=== PATIENT | female | born 1960 | race Caucasian/White ===

== ENCOUNTER 2016-05-03 13:17 | Emergency (ER) | payer MEDICARE, OTHER ==
[~2016-05-03] VITALS: Ht 162.6 cm; Wt 43.7 kg
[~2016-05-03 13:17] MED LIST: BENZ1 PO; BENZ1TAB PO; INVE6TAB2 PO; PALI6 PO; PARO20 PO; PAXI30TA7 PO
[2016-05-03 13:41] VITALS: BP 113/81; PULSE 117; RESP 16; TEMP 98.2; O2SAT 98
[2016-05-03 15:13] VITALS: BP 131/79; PULSE 102; RESP 18; O2SAT 99
[2016-05-03 15:34] LABS: AUTOMATED NEUTROPHIL # 6.6 TH/MM3 (1.8-7.7); BASOPHIL % 0.5 % (0.0-2.0); EOSINOPHIL # 0.1 TH/MM3 (0-0.4); HEMO FLAGS DIFF FINAL; LYMPH % 13.3 % (9.0-44.0); LYMPHOCYTE # 1.1 TH/MM3 (1.0-4.8); MEAN CELL VOLUME 88.6 FL (80.0-100.0); MEAN CORPUSCULAR HEMOGLOBIN 29.6 PG (27.0-34.0); MEAN CORPUSCULAR HGB CONC 33.3 % (32.0-36.0); MONO % 3.7 % (0.0-8.0); NEUT % 81.5 % (16.0-70.0); PLATELET COUNT 256 TH/MM3 (150-450); RED BLOOD COUNT 4.52 MIL/MM3 (4.00-5.30); RED CELL DISTRIBUTION WIDTH 14.5 % (11.6-17.2); WHITE BLOOD COUNT 8.1 TH/MM3 (4.0-11.0)
[2016-05-03 15:45] LABS: CHLORIDE 117 MEQ/L (98-107); POTASSIUM 5.1 MEQ/L (3.5-5.1); SODIUM (NA) 143 MEQ/L (136-145)
[2016-05-03 15:48] LABS: ANION GAP 8 MEQ/L (5-15); BICARBONATE 18.1 MEQ/L (21.0-32.0); BLOOD UREA NITROGEN 36 MG/DL (7-18)
[2016-05-03 15:51] LABS: ALT (GPT) 12 U/L (10-53); AST (GOT) 5 U/L (15-37); GLOMERULAR FILTRATION RATE 24 ML/MIN (>89)
[2016-05-03 15:53] LABS: TOTAL BILIRUBIN ADULT 0.3 MG/DL (0.2-1.0)
[2016-05-03 15:54] LABS: ALKALINE PHOSPHATASE 92 U/L (45-117)
--- NOTE | 2016-05-03 16:08 | RADHPO ---
EXAM DATE/TIME: 05/03/2016 15:20 [place] COMPARISON: No previous studies available for comparison. INDICATIONS : Short of breath. MEDICAL HISTORY : None. SURGICAL HISTORY : None. ENCOUNTER: Initial ACUITY: 1 day PAIN SCORE: 0/10 LOCATION: Bilateral chest FINDINGS: PA and lateral views of the chest demonstrate the lungs to be symmetrically aerated without evidence of mass, infiltrate or effusion. No evidence of pneumothorax. The cardiomediastinal contours are un remarkable. Osseous structures are intact. CONCLUSION: No acute cardiopulmonary disease. Matt Salazar MD on May 03, 2016 at 16:06 Board Certified Radiologist. This report was verified electronically.
[2016-05-03] MEDS ORDERED: VENTAER INH (16:32)
--- NOTE | 2016-05-03 16:32 | PD ---
HPI Chief Complaint: Respiratory Symptoms Time Seen by Provider: 14:47 Travel History International Travel<30 days: No Contact w/Intl Traveler<30days: No Traveled to known affect area: No History of Present Illness HPI So 55-year-old woman who presents to the emergency department complaining of shortness of breath started last night. She hasn't really had any cough or cold symptoms, or chest pain with it. She is a history of tobacco use and smokes a half pack per day but has no history of COPD or emphysema. She parted friend's nebulizer and states it didn't really help. She does have a history of anxiety. Her brother lives at home with her he's been in the hospital for the past week but she states that she doesn't think that she's been having more anxiety symptoms. No other complaints. History Past Medical History Narrative Medical Depression Hyperlipidemia Tetanus Vaccination: > 5 Years Influenza Vaccination: No Menopausal: Yes : 1 Para: 0 Social History Alcohol Use: Yes Tobacco Use: Yes (/ PPD) Allergies-Medications (Allergen,Severity, Reaction): Coded Allergies: No Known Allergies (Unverified , 05/03/16) Per patient and per [facility] pharmacy. Reported Meds & Prescriptions Reported Meds & Active Scripts Active Paxil 20 Mg Tab (Paroxetine Hcl) 20 Mg Tab 30 Mg PO DAILY 14 Days Invega (Paliperidone Palmitate) 6 Mg Tab 6 Mg PO DAILY 14 Days Benztropine Mesylate 1 Mg Tab 1 Mg PO Q12HR 14 Days Reported Cogentin (Benztropine Mesylate) 2 Mg Tab 2 Mg PO BID Invega (Paliperidone) 6 Mg Tab 12 Mg PO HS Paxil (Paroxetine HCl) 30 Mg Tab 60 Mg PO DAILY Review of Systems Except as stated in HPI: all other systems reviewed are Neg Physical Exam Narrative GENERAL: Thin 55-year-old woman, no acute distress. SKIN: Warm and dry. HEAD: Atraumatic. Normocephalic. NECK: Trachea midline. No JVD. CARDIOVASCULAR: Regular rate and rhythm. No murmur appreciated. RESPIRATORY: No accessory muscle use. Clear to auscultation. Breath sounds equal bilaterally. GASTROINTESTINAL: Abdomen soft, non-tender, nondistended. Hepatic and splenic margins not palpable. MUSCULOSKELETAL: No obvious deformities. No edema. NEUROLOGICAL: Awake and alert. No obvious cranial nerve deficits. Motor grossly within normal limits. Normal speech. PSYCHIATRIC: Appropriate mood and affect; insight and judgment normal. Data Data Last Documented VS Vital Signs Date Time Temp Pulse Resp B/P Pulse Ox O2 Delivery O2 Flow Rate FiO2 05/03/16 15:13 102 18 131/79 99 Room Air 05/03/16 13:41 98.2 Orders Complete Blood Count With Diff (05/03/16 15:12) Comprehensive Metabolic Panel (05/03/16 15:12) Troponin I (05/03/16 15:12) Chest, Pa & Lat (05/03/16 ) Electrocardiogram (05/03/16 ) Iv Access Insert/Monitor (05/03/16 15:12) Labs Laboratory Tests Test 05/03/16 15:28 White Blood Count 8.1 TH/MM3 Red Blood Count 4.52 MIL/MM3 Hemoglobin 13.4 GM/DL Hematocrit 40.0 % Mean Corpuscular Volume 88.6 FL Mean Corpuscular Hemoglobin 29.6 PG Mean Corpuscular Hemoglobin 33.3 % Concent Red Cell Distribution Width 14.5 % Platelet Count 256 TH/MM3 Mean Platelet Volume 7.4 FL Neutrophils (%) (Auto) 81.5 % Lymphocytes (%) (Auto) 13.3 % Monocytes (%) (Auto) 3.7 % Eosinophils (%) (Auto) 1.0 % Basophils (%) (Auto) 0.5 % Neutrophils # (Auto) 6.6 TH/MM3 Lymphocytes # (Auto) 1.1 TH/MM3 Monocytes # (Auto) 0.3 TH/MM3 Eosinophils # (Auto) 0.1 TH/MM3 Basophils # (Auto) 0.0 TH/MM3 CBC Comment DIFF FINAL Differential Comment Sodium Level 143 MEQ/L Potassium Level 5.1 MEQ/L Chloride Level 117 MEQ/L Carbon Dioxide Level 18.1 MEQ/L Anion Gap 8 MEQ/L Blood Urea Nitrogen 36 MG/DL Creatinine 2.10 MG/DL Estimat Glomerular Filtration 24 ML/MIN Rate Random Glucose 102 MG/DL Calcium Level 9.6 MG/DL Total Bilirubin 0.3 MG/DL Aspartate Amino Transf 5 U/L (AST/SGOT) Alanine Aminotransferase 12 U/L (ALT/SGPT) Alkaline Phosphatase 92 U/L Troponin I LESS THAN 0.02 NG/ML Total Protein 7.3 GM/DL Albumin 3.6 GM/DL MDM Medical Decision Making Medical Screen Exam Complete: Yes Emergency Medical Condition: Yes Interpretation(s) My review of EKG: Normal sinus rhythm at a rate of 87, normal axis, normal intervals, prominent P waves in the inferior leads could suggest P pulmonale. LABS: CBC unremarkable. CMP remarkable for mildly elevated BUN and creatinine. Troponin negative. Chest x-ray negative. Differential Diagnosis COPD, emphysema, COPD bronchitis, anxiety, PE, ACS, other Narrative Course FINAL: 55-year-old woman with history of smoking, who is some shortness of breath. Normal pulmonary exam. Does not appear labored or tachypneic. EKG is unremarkable with may be some suggestion of right atrial enlargement. I don't think she has PE. She likely has some underlying lung disease. Recommend supportive treatment, bronchodilators, return for any worsening symptoms. Diagnosis Primary Impression: Shortness of breath Additional Instructions: Take inhaler every 4-6 hours as needed. Return to the emergency department for any worsening shortness of breath, chest pain, or any other new or worsening symptoms. Med/Other Pt SpecificInfo: Prescription(s) given Scripts Albuterol 18 GM Inh (Ventolin Hfa 18 GM Inh)90 Mcg/Act Aer2 Puff INH Q4-6H PRN ( SHORTNESS OF BREATH) #1 INHALER Prov:Bakari Juarez MD 05/03/16 Disposition: 01 DISCHARGE HOME Condition: Stable Bakari Juarez MD May 03, 2016 16:32
[2016-05-03 16:40] VITALS: BP 128/76; PULSE 94; RESP 16; O2SAT 99
--- NOTE | 2016-05-04 17:25 | EKG ---
Date Performed: 05/03/2016 Time Performed: 15:23:46 PTAGE: 55 years EKG: Sinus rhythm Possible left atrial abnormality Borderline ECG PREVIOUS TRACING : 08/13/2015 13.25 Since previous tracing, no significant change noted DOCTOR: July Ulloa Interpretating Date/Time 05/04/2016 17:17:52
== END 2016-05-03 17:25 | disposition home or self-care (01) ==
LOC: PHED 13:17
DX: R06.02 Shortness of breath (principal); F17.210 Nicotine dependence, cigarettes, uncomplicated; F10.10 Alcohol abuse, uncomplicated; F32.9 Major depressive disorder, single episode, unspecified; E78.5 Hyperlipidemia, unspecified
CPT/HCPCS: 71020; 80053; 84484; 85025; 93005

== ENCOUNTER 2016-06-04 17:04 | Emergency (ER) | payer MEDICARE, OTHER ==
[~2016-06-04 17:04] MED LIST changes: +VENTAER INH
[2016-06-04 17:13] VITALS: BP 119/78; PULSE 130; RESP 18; TEMP 99.1; O2SAT 96
[2016-06-04 17:46] LABS: AUTOMATED NEUTROPHIL # 9.4 TH/MM3 (1.8-7.7); BASOPHIL # 0.1 TH/MM3 (0-0.2); EOSINOPHIL % 0.2 % (0.0-4.0); HEMATOCRIT 40.6 % (35.0-46.0); HEMO FLAGS DIFF FINAL; LYMPH % 9.3 % (9.0-44.0); MEAN CELL VOLUME 88.5 FL (80.0-100.0); MEAN CORPUSCULAR HGB CONC 33.9 % (32.0-36.0); MONO % 3.6 % (0.0-8.0); NEUT % 85.9 % (16.0-70.0); PLATELET COUNT 212 TH/MM3 (150-450); RED BLOOD COUNT 4.58 MIL/MM3 (4.00-5.30); RED CELL DISTRIBUTION WIDTH 15.1 % (11.6-17.2)
[2016-06-04 17:50] VITALS: PULSE 112
[2016-06-04 17:54] LABS: AMPHETAMINE, URINE NEG (NEG); BARBITURATES, URINE NEG (NEG); COCAINE, URINE NEG (NEG)
[2016-06-04 18:06] LABS: ANION GAP 10 MEQ/L (5-15); AST (GOT) 10 U/L (15-37); BICARBONATE 19.7 MEQ/L (21.0-32.0); BLOOD UREA NITROGEN 37 MG/DL (7-18); CHLORIDE 111 MEQ/L (98-107); GLOMERULAR FILTRATION RATE 22 ML/MIN (>89); POTASSIUM 4.4 MEQ/L (3.5-5.1); SODIUM (NA) 141 MEQ/L (136-145)
[2016-06-04 18:09] LABS: ALKALINE PHOSPHATASE 112 U/L (45-117); ALT (GPT) 15 U/L (10-53); TOTAL BILIRUBIN ADULT 0.4 MG/DL (0.2-1.0)
[2016-06-04 18:13] LABS: ACETAMINOPHEN LESS THAN 2.0 MCG/ML (10.0-30.0)
--- NOTE | 2016-06-04 18:23 | PD ---
HPI Chief Complaint: Psychiatric Symptoms Time Seen by Provider: 18:19 Travel History International Travel<30 days: No Contact w/Intl Traveler<30days: No Traveled to known affect area: No History of Present Illness HPI 55-year-old female that presents to the ED for evaluation of psychiatric illness. Patient comes here under Mosher act after apparently DCF was in the house trying to establish and there was any possibility of neglect and she was found to be incapable of taking care of herself. She does have a history of schizophrenia as well as her depression and anxiety. Per patient she's been on her medications. She denies any pain of any kind. She denies any symptoms of any kind. Per patient she wants to go home. Patient denies any suicidal or homicidal ideation. She does appear to have some bizarre thinking. No sign of acute disease. She has been here before. She is not very forthcoming with information and for the most but some suggestion or no questions. She is a poor historian. [facility] Past Medical History Anemia: Yes Anxiety: Yes Depression: Yes Developmental Delay: Yes Diminished Hearing: No Genitourinary: No Musculoskeletal: No Neurologic: No Psychiatric: Yes (pt has a longstanding history of psychiatric care starting in [place] ) Reproductive: No Respiratory: No Schizophrenia: Yes Menopausal: Yes : 1 Para: 0 Miscarriage: 0 : 1 Past Surgical History Appendectomy: Yes (1994) Social History Alcohol Use: No Tobacco Use: Yes (1 PPD) Substance Use: No (DENIES) Allergies-Medications (Allergen,Severity, Reaction): Coded Allergies: No Known Allergies (Unverified , 05/03/16) Per patient and per [facility] pharmacy. Reported Meds & Prescriptions Reported Meds & Active Scripts Active Ventolin Hfa 18 GM Inh (Albuterol Sulfate) 90 Mcg/Act Aer 2 Puff INH Q4-6H PRN Paxil 20 Mg Tab (Paroxetine Hcl) 20 Mg Tab 30 Mg PO DAILY 14 Days Invega (Paliperidone Palmitate) 6 Mg Tab 6 Mg PO DAILY 14 Days Benztropine Mesylate 1 Mg Tab 1 Mg PO Q12HR 14 Days Reported Benztropine Mesylate 2 Mg Tab 2 Mg PO BID Invega (Paliperidone) 6 Mg Tab 12 Mg PO HS Paxil (Paroxetine HCl) 30 Mg Tab 60 Mg PO DAILY Review of Systems ROS Limitations: Poor Historian Except as stated in HPI: all other systems reviewed are Neg Physical Exam Exam Limitations: Poor Historian Narrative GENERAL: SKIN: Warm and dry. HEAD: Atraumatic. Normocephalic. EYES: Pupils equal and round. No scleral icterus. No injection or drainage. ENT: No nasal bleeding or discharge. Mucous membranes pink and moist. Tongue is midline. No uvula deviation. NECK: Trachea midline. No JVD. CARDIOVASCULAR: Regular rate and rhythm. No murmurs, S3, S4. RESPIRATORY: No accessory muscle use. Clear to auscultation. Breath sounds equal bilaterally. GASTROINTESTINAL: Abdomen soft, non-tender, nondistended. Hepatic and splenic margins not palpable. MUSCULOSKELETAL: Extremities without clubbing, cyanosis, or edema. No obvious deformities. Full range of motion of the upper and lower extremities bilaterally. 2+ pulses bilaterally. NEUROLOGICAL: Awake and alert. No obvious cranial nerve deficits. Motor grossly within normal limits. Five out of 5 muscle strength in the arms and legs. Normal speech. PSYCHIATRIC: Somewhat psychotic mood and affect; insight and judgment questionable Data Data Last Documented VS Vital Signs Date Time Temp Pulse Resp B/P Pulse Ox O2 Delivery O2 Flow Rate FiO2 06/04/16 17:50 112 06/04/16 17:35 20 06/04/16 17:13 99.1 119/78 96 Room Air Orders Complete Blood Count With Diff (06/04/16 17:18) Comprehensive Metabolic Panel (06/04/16 17:18) Psych Screen (06/04/16 17:18) Drug Screen, Random Urine (06/04/16 17:18) Alcohol (Ethanol) (06/04/16 17:18) Salicylates (Aspirin) (06/04/16 17:18) Tylenol (Acetaminophen) (06/04/16 17:18) Electrocardiogram (06/04/16 ) Labs Laboratory Tests Test 06/04/16 06/04/16 17:25 17:29 White Blood Count 11.0 TH/MM3 Red Blood Count 4.58 MIL/MM3 Hemoglobin 13.8 GM/DL Hematocrit 40.6 % Mean Corpuscular Volume 88.5 FL Mean Corpuscular Hemoglobin 30.0 PG Mean Corpuscular Hemoglobin 33.9 % Concent Red Cell Distribution Width 15.1 % Platelet Count 212 TH/MM3 Mean Platelet Volume 7.9 FL Neutrophils (%) (Auto) 85.9 % Lymphocytes (%) (Auto) 9.3 % Monocytes (%) (Auto) 3.6 % Eosinophils (%) (Auto) 0.2 % Basophils (%) (Auto) 1.0 % Neutrophils # (Auto) 9.4 TH/MM3 Lymphocytes # (Auto) 1.0 TH/MM3 Monocytes # (Auto) 0.4 TH/MM3 Eosinophils # (Auto) 0.0 TH/MM3 Basophils # (Auto) 0.1 TH/MM3 CBC Comment DIFF FINAL Differential Comment Sodium Level 141 MEQ/L Potassium Level 4.4 MEQ/L Chloride Level 111 MEQ/L Carbon Dioxide Level 19.7 MEQ/L Anion Gap 10 MEQ/L Blood Urea Nitrogen 37 MG/DL Creatinine 2.32 MG/DL Estimat Glomerular Filtration 22 ML/MIN Rate Random Glucose 120 MG/DL Calcium Level 9.7 MG/DL Total Bilirubin 0.4 MG/DL Aspartate Amino Transf 10 U/L (AST/SGOT) Alanine Aminotransferase 15 U/L (ALT/SGPT) Alkaline Phosphatase 112 U/L Total Protein 7.4 GM/DL Albumin 3.9 GM/DL Salicylates Level 17.2 MG/DL Acetaminophen Level LESS THAN 2.0 MCG/ML Ethyl Alcohol Level LESS THAN 3 MG/DL Urine Opiates Screen NEG Urine Barbiturates Screen NEG Urine Amphetamines Screen NEG Urine Benzodiazepines Screen NEG Urine Cocaine Screen NEG Urine Cannabinoids Screen NEG MDM Medical Decision Making Medical Screen Exam Complete: Yes Emergency Medical Condition: Yes Medical Record Reviewed: Yes Interpretation(s) CBC & BMP Diagram 06/04/16 17:25 LFTS wnl Tox negative Differential Diagnosis Depression versus suicidal ideation versus anxiety versus adjustment disorder versus mood disorder versus bipolar disorder versus schizophrenia versus paranoid disorder versus psychosis versus substance abuse versus alcohol abuse versus alcohol induced psychosis versus homicidality addition versus cutting versus personality disorder Narrative Course 55-year-old female that presents to the ED for evaluation of psych. Patient was properly examined and was found to have signs and symptoms consistent with psychiatric illness. No sign of acute medical distress. Labs were done. Patient was found to have what appears to be chronic kidney disease. Patient was seen here on 2015 and was found to be also having chronic kidney disease. This appears to be stable from her prior. I do not see any need to acutely treat this. At this time patient will be medically clear. Okay to be seen by psych. Mental health screening was discussed with the patient. Diagnosis Primary Impression: Schizophrenia, acute undifferentiated Tej Maldonado Jun 04, 2016 18:23
[2016-06-04] MEDS ORDERED: COGE1INJ PO (19:26)
[2016-06-04 19:37] VITALS: BP 154/82; PULSE 99; RESP 18
[2016-06-04 22:32] VITALS: BP 112/55; PULSE 100; RESP 19; O2SAT 97
[2016-06-05 02:20] VITALS: BP 116/69; PULSE 76; RESP 18; O2SAT 98
--- NOTE | 2016-06-05 08:29 | MB ---
cc: ROLAN TEAGUE MD DATE OF CONSULTATION 06/05/2016 PHYSICIAN REQUESTING CONSULTATION Emergency Department REASON FOR CONSULTATION Mosher Act HISTORY OF PRESENT ILLNESS Ms. Montemayor is a 55-year-old female with a history of schizophrenia who presents under a Mosher Act from [facility] Department alleging that "during the course of a neglect investigation with the DCF...it was determined that Ramila was not only unable to care for her brother, Porsche Montemayor, she was unable to care for herself." There is no allegation of unstable mental illness in the Mosher Act, nor are there any suicidal or homicidal concerns raised. Reviewing the electronic medical record, I note the patient was admitted here under Dr. Levine back in July of 2015, and at that point notes indicate that she was significantly psychiatrically decompensated. The patient seen and examined. Chart reviewed. The case discussed with nurse in the J-pod. There has been no evidence of any suicidality or homicidality while under observation in the J-pod. On my examination this morning, the patient presents as psychiatrically stable. She denies any suicidal or homicidal ideation. She denies any audiovisual hallucinations, although she does admit that in periods of previous instability, she has experienced auditory hallucinations in the past. I can elicit no delusional beliefs including, but not limited to paranoia, ideas of reference, thought insertion or withdrawal, or grandiosity. She denies feeling particularly depressed, nor can I elicit any depressive symptoms. No hypomanic or manic symptoms present. The patient maintains that she has been attending to her basic needs and says that her last shower was yesterday. She notes that her brother has been ill and her last decent meal was before he went into the hospital last Saturday, but she says she has been eating in the meantime, albeit in a somewhat more scattered fashion. She says that she had a hamburger meal yesterday prior to being brought into the hospital. She admits that her house is "not perfect" but she takes issue with the report of "deplorable conditions" alleged in the Mosher Act. She says that she has a cleaning person coming in on Saturday to take care of the place. She also says that her medications are provided to her by someone that comes into the home on a weekly basis and she maintains she has been adherent with medications. The remainder of the psychiatric ROS is negative. The patient is requesting discharge from the psychiatric emergency room this morning. PAST PSYCHIATRIC HISTORY The patient reports a history of schizophrenia. She takes a combination of an antipsychotic and antidepressant along with Cogentin. She has a clinician reportedly who visits her in the home for psychiatric care. Her most recent admission was here under Dr. Levine in July of last year. She reports one prior suicide attempt at age 24 by overdose on sleeping pills. FAMILY HISTORY The patient denies a family history of serious mental illness, substance use disorder or suicide. CHEMICAL DEPENDENCY HISTORY The patient denies any abuse of drugs or alcohol. SOCIAL HISTORY The patient reports that she lives with her brother. She says that her brother has disability related to having "one and a half legs." She is college educated , an [place] literature major. She is disabled. She is single with no children. Denies any or legal history. Denies any access to guns or firearms. She does endorse adventism/spiritual beliefs. PAST MEDICAL HISTORY The patient denies any current medical issues. REVIEW OF SYSTEMS No reported headache, vision or hearing changes, chest pain, shortness of breath, bowel or bladder issues. No other physical complaints. PHYSICAL EXAMINATION VITAL SIGNS: Temperature is 99.1, pulse of 76, respirations 18, blood pressure 116/69, pulse oximetry 98% on room air. A physical examination was completed in the emergency room by the ER staff and the patient was medically cleared. On my examination today, the patient is somewhat thin, but not emaciated or frankly malnourished. Her dentition is somewhat poor. No motoric abnormalities noted. LABORATORY Reviewed: CBC is unremarkable. CMP is significant for a decreased GFR at 22, mild hyperglycemia at 120. I also note that the patient does not have hypoalbuminemia as is seen with severe malnutrition. Toxicology is negative and alcohol level was undetectable. MENTAL STATUS EXAM The patient is in hospital gown. She is mildly disheveled, but is certainly maintaining basic hygiene. She is awake and alert and oriented to person, location and year. Her registration is 3/3, although her recall is 0/3 at five minutes. She is able to spell the word WORLD forward and backward. She is able to name two items and repeat a phrase. She gives the current president as Trump and the last president she recalls is Sea. Speech is within normal limits for rate, tone and volume. Language and fund of knowledge seem average. Mood is fair and affect is blunted. Thought process linear. No loosening of associations. No evident delusions. Denies audiovisual hallucinations. Denies suicidal or homicidal ideation. Insight and judgment are fair at best. ASSESSMENT/PLAN 1. Schizophrenia, undifferentiated type, presently stable F20.3 This is a 55-year-old female with psychiatric history as detailed above who presents on a Mosher Act. Mosher Act makes no allegations of unstable psychiatric illness or of suicidal/homicidal concerns. Main concern appears to be functional impairment and lack of self care. On my examination today, I can detect no unstable mood, anxiety or psychotic disorder in this patient at this time. She denies suicidal or homicidal ideation. She purports to be attending to her basic needs and there is no overt evidence on exam that these are being neglected. Synthesizing the above information, I bladder blower the patient does not presently meet Mosher Act criteria as there is no evidence of an unstable mental illness or imminent risk of harm or neglect to self or others as a consequence of mental illness. I have lifted the Mosher Act. There may be broader concerns about the patient's functional status and her ability to care for herself, but the answer is not presently to psychiatrically hospitalize the patient. I have recommended that she accept help for concerns of functional impairment, but the patient does say that she is a fairly private person. I have encouraged the patient to follow up with her outpatient psychiatric provider. The patient is to return to the psychiatric emergency room for any concerning psychiatric symptoms. I have asked the nurse in the J-pod to liaison with the DCF worker who contacted the officer to have the patient Nomi acted to update the DCF worker on the patient's discharge from the ED. The patient is psychiatrically clear for discharge from the ED. Thank you very much for this consultation. Rolan HUMPHRIES /7:53 AM /8:16 AM NANO
[2016-06-05 12:22] VITALS: BP 118/69; PULSE 105; RESP 18; O2SAT 97
[2016-06-05 16:19] VITALS: BP 118/69; PULSE 105; RESP 18; O2SAT 97
--- NOTE | 2016-06-06 08:12 | EKG ---
Date Performed: 06/04/2016 Time Performed: 18:40:38 PTAGE: 55 years EKG: Sinus rhythm RIGHT ATRIAL ENLARGEMENT LEFT ATRIAL ENLARGEMENT POSSIBLE RIGHT VENTRICULAR CONDUCTION DELAY POSSIBL E LEFT VENTRICULAR HYPERTROPHY ABNORMAL ECG Compared to PREVIOUS TRACING , there has been a marked increase in precordial voltage but no other si gnificant serial change. PREVIOUS TRACIN05/03/2016 15.23 DOCTOR: Emma Mehta Interpretating Date/Time 06/06/2016 08:10:23
== END 2016-06-05 18:49 | disposition home or self-care (01) ==
LOC: NEDAMB 17:04 → NEPJ 06-05 18:49
DX: F20.3 Undifferentiated schizophrenia (principal); F17.200 Nicotine dependence, unspecified, uncomplicated; Z86.59 Personal history of other mental and behavioral disorders; Z86.2 Personal history of diseases of the blood and blood-forming organs and certain disorders involving the immune mechanism; R94.31 Abnormal electrocardiogram [ECG] [EKG]
CPT/HCPCS: 80053; 80307; 85025; 93005